=== PATIENT | female | born 1980 | race Caucasian/White ===

== ENCOUNTER 2023-03-06 13:02 | Outpatient (CLI) | payer OTHER, SELFPAY ==
--- OUTSIDE RECORDS SUMMARY | 2023-03-06 13:04 | XMS_ITS | Clinical Summary ---
Author Name Unknown Organization [facility] Address [place], [place] [address] Care Team Providers Care Factory Hand Name Role Phone Jocelyn Estes MD Primary Care Provider [phone] Allergies No known active allergies Medications Medication Sig Dispensed Refills Start Date End Date Status aluminum chloride (Drysol) 20 % external solutionIndications: Excessive sweating,Hyperhidros is Apply topically to affected area(s) at bedtime. 60 mL 3 01/18/2021 Active fluticasone (50 mcg per actuation) nasal solution (FLONASE)Indications :Acute recurrent maxillary sinusitis INHALE 2 SPRAYS TO BOTH NOSTRILS ONCE DAILY 16 g 5 02/08/2021 Active triamcinolone 0.1% (KENALOG IN ORABASE) 0.1 % pasteIndications:Can ker sore Apply small amount to affected area in mouth 2 times a day. 5 g 3 09/01/2022 Active albuterol HFA (PRO-AIR; VENTOLIN; PROVENTIL) 90 mcg/actuation inhalerIndications:E xercise-induced asthma with acute exacerbation Inhale 2 Puffs by mouth every 4 hours if needed for Shortness Of Breath. 8.5 g 2 09/01/2022 Active fluticasone propion-salmeteroL (ADVAIR) 500-50 mcg/Dose diskus inhalerIndications:E xercise-induced asthma with acute exacerbation Inhale 1 Puff by mouth two times daily. 60 Each 5 09/01/2022 Active gabapentin (NEURONTIN) 100 mg capsuleIndications:C hronic low back pain, unspecified back pain laterality, unspecified whether sciatica present one pill oral daily at bedtime 30 Capsule 09/01/2022 Active cyclobenzaprine (FLEXERIL) 10 mg tabletIndications:Ch ronic low back pain, unspecified back pain laterality, unspecified whether sciatica present Take 1 Tablet (10 mg) by mouth 3 times daily if needed for Muscle Spasm. 30 Tablet 2 09/01/2022 Active citalopram (CELEXA) 10 mg tabletIndications:An xiety associated with depression TAKE 1 TABLET BY MOUTH ONCE DAILY 90 Tablet 2 10/10/2022 Active buPROPion (WELLBUTRIN SR) 150 mg Sustained-Release tabletIndications:An xiety associated with depression TAKE 1 TABLET BY MOUTH IN THE MORNING 90 Tablet 2 10/10/2022 Active omeprazole (PRILOSEC) 20 mg Delayed-Release capsuleIndications:G astroesophageal reflux disease, unspecified whether esophagitis present TAKE ONE CAPSULE BY MOUTH EVERY DAY BEFORE A MEAL 90 Capsule 0 02/20/2023 Active Active Problems Problem Noted Date Diagnosed Date Gastritis 10/06/2022 Anxiety associated with depression 07/09/2015 Exercise-induced asthma with acute exacerbation 02/26/2015 Resolved Problems Problem Noted Date Diagnosed Date Resolved Date Acute recurrent maxillary sinusitis 04/08/2021 04/08/2021 Adjustment disorder 12/30/2016 11/07/19 Mood swings 03/07/2014 11/07/2019 Dysmenorrhea 09/13/2012 11/07/2019 Contraception 09/29/2011 08/22/2013 Varicose vein of leg, 09/29/2011 09/01/2022 Supervision of other normal 04/14/2011 08/28/2011 Overview: 3rd : 2 previous 37 week vaginal deliveries Plt: 123 on first Ob visit. repeat: stable GBS: negative Supervision of normal first 05/12/2007 10/30/2009 Excessive or frequent menstruation 01/06/2006 04/14/2011 Unspecified asthma(493.90) 01/06/2006 0 05/19/2011 Overview: exercise induced Insomnia, unspecified 01/06/20062011 Encounters Date Type Department Care Team Description 02/18/[address] [facility] [address] [place] [id number] Jocelyn Estes MD Refill Request (Omeprazole) 01/05/2023 Telephone [facility] [address] [place] [address] Chante Chawla, RN billing from Last 3 Months Immunizations Name Administration Dates Next Due COVID-19 vaccine ([employer] NTech 30mcg/0.3mL) DAVID BALLESTEROS 03/20/2020,02/28/2020 Hepatitis A (Adult) 02/11/2002,04/22/2001 Hepatitis B (Adult) 09/13/1998,04/23/1998,1997 Influenza A (H1N1), Inactiva roxy (Age >=3 Years) 12/22/2008 Influenza RIV4 (Age 18+ Year s) PRESERV FREE 11/24/2018 Influenza Virus, Unspecified 11/23/2012 Influenza, IIV3 (Age 6-35 mos) 12/03/2012,2011,12/13/2010 Influenza, IIV3 (Age >=3 years) 01/24/2014,11/14 Influenza, IIV4 12/06/2021,,11/25/2017,2016,11/30/2015,11/29/2014 Td (Age >=7 Years) 06/08/2005,04/19/2004 Tdap 09/01/2022,06/23/2011 Family History Medical History Relation Name Comments Hyperlipidemia Father high triglyce rides Diabetes Maternal Aunt 1 Thyroid Disease Maternal Aunt 2 Asthma Maternal Aunt 3 Cancer Maternal Grandfather Cancer Mother melanoma 12/29 Cancer-colon Paternal Grandmother gallsto flip, hiatal hernia Relation Name Status Comments Brother Alive Father Alive Maternal Aunt 1 Maternal Aunt 2 Maternal Aunt 3 Maternal Grandfather Maternal Grandmother Alive Mother Alive Paternal Grandfather (Age 73) Paternal Grandmother Sister Alive X2 Son 1 Alive Son 2 Alive Son 3 Alive Social History Tobacco Use Types Packs/Day Years Used Date Smoking Tobacco: Never Smokeless Tobacco: Never Tobacco Cessation:Counseling Given: Yes Alcohol Use Standard Drinks/Week Comments Yes 0 (1 standard drink = 0.6 oz pur e alcohol) socially PHQ-2 Answer Date Recorded PHQ-2 TOTAL SCORE 1 09/01/2022 Social Connections Answer Date Recorded Frequency of Communication with Friends and Fami ly 0 09/01/2022 Financial Resource Strain Answer Date R ecorded Difficulty of Paying Living Expenses 3 09/01/2022 Difficulty of Paying Living Expenses Not on file 09/01/2022 Food Insecurity Answer Date Recorded Worried About Running Out of Food in the Last Ye ar 1 09/01/2022 Transportation Needs Answer Date Record ed Lack of Transportation (Medical) 1 09/01/2022 Housing Stability Answer Date Recorded Unable to Pay for Housing in the Last Year 1 09/01/2022 Sex and Gender Information Value Date Recorded Sex Assigned at Not on file Gender Identity Not on file Sexual Orientation Not on file Obstetrics History Para Term AB IAB SAB Ectopic Multiple Livin g Live Births 4 3 3 0 1 0 0 3 Date Outcome GA Total Labor Labor/2nd/3rd Weight Sex Delivery Anes PTL Kacey A1 A5 Name Cl in 05/13 Term 37w 0d M Vag Low n Comments:IRVIN 06/12 09 AB 09/12 Term 37w 0d 8h 00m/ 3.69 kg (8 lb 2 oz) M Vag Olw n Comments:[facility] 08/12 Term 37w 0d 6h 00m/ 3.15 kg (6 lb 15 oz) M Vag Low n Comments:System Genera roxy. Please review and update details. Comments Pedro Kelly Benjamin Last Filed Vital Signs Vital Sign Reading Time Taken Comments Blood Pressure 98/61 10/06/2022 1:30 PM CDT Pulse 71 10/06/2022 1:45 PM CDT Temperature 36.8 ??C (98.2 ??F) 10/06/2022 10:48 AM C DT Respiratory Rate 16 10/06/2022 1:45 PM CDT Oxygen Saturation 100% 10/06/2022 1:45 PM CDT Inhaled Oxygen Concentration - - Weight 57.7 kg (127 lb 4.8 oz) 10/06/2022 10:48 AM CDT Height 161.3 cm (5' 3.5) 10/06/2022 10:48 AM CD T Body Mass Index 22.19 10/06/2022 10:48 AM CDT Plan of Treatment Health Maintenance Due Date Last Done Comments Pneumococcal series for age 6-64 (1 of 2 - PCV) 1988 COVID-19 vaccine series (4 - 2022- season) 2022 02/05/2021, 03/20/2020, 02/28/2020 Influenza for age 9-49 10/24/2022 , 01/22/2021, 11/24/2018, Additional history exists BMI (ht and wt on same day) for age 18+ 09/02/2023 09/01/2022, 04/08/2021, 01/18/2021, Additional history exists Depression screening for age 12+ 09/02/2023 09/01/2022, 04/08/2021, 11/07/2019, Additional history exists Tetanus booster 09/01/2032 09/01/2022, 05/26, 06/08/2005, Additional history exists HIV for age 15-65 Completed 02/18/2011, , 03/17/2007 Hepatitis C screening for ag e 18-79 Completed 09/01/2022 Tdap Completed 09/01/2022, 06/23/2011 Medical Devices Implanted Type [employer] Device Identifier Shelf Expiration Date Model / Serial / Lot [id number] - [id number] Implanted:Qty: 1 on 10/26/2013 by Lucretia Ahumada MD at [facility] Plastic Implants Left: Breast 04/22/2017 [id number] MP / [id number] / [id number] - [id number] Implanted:Qty: 1 on 10/26/2013 by Lucretia Ahumada MD at [facility] Plastic Implants Right: Breast 09/22/2016 [id number] MP / [id number] / [id number] MP Advance Directives Latest Code Status on File Code Status Date Activated Date Inactivated Comments Full Code 10/06/2022 10:38 AM 10/06/2022 4:20 PM Question Answer Comments Code Status Discussion: Discussed Code Status History Code Status Date Activated Date Inactivated Comments Full Code 10/26/2013 8:41 AM 10/26/2013 4:24 PM Care Teams Factory Hand Relationship Specialty Start Date End Date Jocelyn Estes MD [address] [facility] [place] [id number] PCP - General Family Practice 09/16/22
--- NOTE | 2023-03-06 13:20 | CRLHL7_ITS ---
For Patients: As a result of the Century Cures Act, medical imaging exams and procedure reports are released immediately into your electronic medical record. You may view this report before your referring provider. If you have questions, please contact your health care provider. BILATERAL SCREENING MAMMOGRAM WITH COMPUTER-AIDED DETECTION AND TOMOSYNTHESIS TECHNIQUE: CC, MLO, and implant-displaced views were obtained. These mammographic images have been obtained using full-field digital technique. These mammographic images were interpreted with the benefit of computer-aided detection. Breast Tomosynthesis was used in this interpretation. COMPARISON FILM: Baseline. FINDINGS: The breasts are heterogeneously dense, which may obscure small masses IMPRESSION: There is no radiographic evidence for malignancy. ASSESSMENT: BI-RADS Category 2: Benign RECOMMENDATION: Routine screening mammogram in 1 year. A lay language report of this examination will be provided to the patient. Jf Gonzalez M.D. Diagnostic Radiologist [email or web address] CINTHIA/serafin Transcribed: 4:45 p.mervin betancourt/Dictated by: Jf Gonzalez MD @ 03/11/2023 11:57:00 AM (Electronically Signed)
== END 2023-03-06 13:03 | disposition home or self-care (01) ==
LOC: MAMMO 13:02
PROVIDERS: PCP Family Medicine; Visit Provider Family Medicine
DX: Z12.31 Encounter for screening mammogram for malignant neoplasm of breast (principal); R92.2 Inconclusive mammogram
CPT/HCPCS: 77063; 77067

== ENCOUNTER 2024-03-22 13:46 | Outpatient (CLI) | payer OTHER, SELFPAY | END 2024-03-22 13:47 | disposition home or self-care (01) | LOC: MAMMO 13:46 | PROVIDERS: PCP Family Medicine; Visit Provider Family Medicine | DX: Z12.31 Encounter for screening mammogram for malignant neoplasm of breast (principal); R92.333 Mammographic heterogeneous density, bilateral breasts | CPT/HCPCS: 77063; 77067 ==